=== PATIENT | male | born 1995 | race African-American/Black ===

== ENCOUNTER 2020-01-26 04:29 | Emergency (ER) | payer OTHER ==
[~2020-01-26] VITALS: Ht 170.2 cm; Wt 68.0 kg
--- NOTE | 2020-01-26 04:29 | NUR ---
PT REFUSED TRIAGE AND ALL CARE. ERMD MADE AWARE.
--- NOTE | 2020-01-26 04:37 | NUR ---
PATIENT BIB [facility] PATIENT EXAMINED BY DR. MUHAMMAD. PATIENT MEDICALLY CLEARED AND RELEASED IN CUSTODY IN STABLE CONDITION. ORIGINAL PRE-BOOK FORM GIVEN TO OFFICER [employer], #[id number].
== END 2020-01-26 04:37 ==
LOC: MED 04:29
DX: Z04.1 Encounter for examination and observation following transport accident (principal); Z02.89 Encounter for other administrative examinations; V49.60XA Unspecified car occupant injured in collision with unspecified motor vehicles in traffic accident, initial encounter; Y93.89 Activity, other specified; Y92.89 Other specified places as the place of occurrence of the external cause; Y99.8 Other external cause status
CPT/HCPCS: 99283